=== PATIENT | female | born 1960 | race African-American/Black ===

== ENCOUNTER 2018-09-07 17:47 | Emergency (ER) | payer MEDICAID, OTHER ==
[~2018-09-07] VITALS: Ht 175.3 cm; Wt 78.0 kg
[~2018-09-07 17:47] MED LIST: IBUPROFEN600 MG PO; MOTION RELIEF25 MG PO; NKM; NORCO 5-325 TA1 EACH PO; PREVACID30 MG PO; ROBAXIN-750750 MG PO
[2018-09-07 17:56] VITALS: BP 138/85
--- NOTE | 2018-09-07 18:02 | NUR ---
ED Nurse Note: pt walked in to ED due to burning pain during urination. per pt, sx startes about 1 month ago with back pain. seen by PCP and took macrobid and cipro. but sx gets worse. starting 2 weeks, burning sensation started. AAO x4. respirations even and non-labored noted. skin warm to touch. no fever or chills reported. will wait for the further order.
--- NOTE | 2018-09-07 18:25 | Emergency Room Report ---
History of Present Illness General Chief Complaint: Female Urogenital Problems Source: Medical Record Present Illness HPI 58-year-old female presents to the emergency department complaining of 10 out of 10 in severity dysuria and lower abdominal burning sensation times one month. Patient reports that she has been evaluated twice and had normal UAs however she was placed on 2 different antibiotics first Macrobid for which made her symptoms worse, then she went to a different urgent care and received Cipro. Patient states that her symptoms less than however they returned. Patient denies hematuria. Patient reports acute onset of 10 out of 10 in severity right flank pain that she describes as intermittent and "stabbing " denies history of renal calculi, denies fevers, chills or recent trauma/fall. She denies vaginal discharge, genital lesions, swollen tender lymph nodes or history of STI. He denies history of diabetes Allergies: Coded Allergies: No Known Allergies (Unverified , 10/20/12) Patient History Past Medical History: see triage record Past Surgical History: none Pertinent Family History: none Last Menstrual Period: menopause Now: No Reviewed Nursing Documentation: PMH: Agreed; PSxH: Agreed Nursing Documentation-PMH Past Medical History: No History, Except For Hx Gastrointestinal Problems: Yes - gerd Review of Systems All Other Systems: negative except mentioned in HPI Physical Exam Vital Signs Date Time Temp Pulse Resp B/P (MAP) Pulse Ox O2 Delivery O2 Flow Rate FiO2 09/07/18 17:56 98.3 71 18 138/85 97 Room Air Sp02 EP Interpretation: reviewed, normal General Appearance: no apparent distress, alert, GCS 15, non-toxic Head: normocephalic, atraumatic Eyes: bilateral eye normal inspection, bilateral eye PERRL ENT: hearing grossly normal, normal voice Neck: full range of motion Respiratory: lungs clear, normal breath sounds, speaking full sentences Cardiovascular #1: regular rate, rhythm Gastrointestinal: normal bowel sounds, non tender, soft, non-distended, no guarding Rectal: deferred Genitourinary: normal inspection, no CVA tenderness Musculoskeletal: back normal, gait/station normal, normal range of motion, non- tender Neurologic: alert, oriented x3, responsive, motor strength/tone normal, sensory intact, speech normal, grossly normal Psychiatric: judgement/insight normal Skin: normal color, no rash, warm/dry, well hydrated Lymphatic: no adenopathy Medical Decision Making PA Attestation Dr. delcid is my supervising Physician whom patient management has been discussed with. Diagnostic Impression: Primary Impression: Cystitis Additional Impression: Dysuria ER Course 58-year-old female presents to the emergency department complaining of 10 out of 10 in severity dysuria and lower abdominal burning sensation times one month. Patient reports that she has been evaluated twice and had normal UAs however she was placed on 2 different antibiotics first Macrobid for which made her symptoms worse, then she went to a different urgent care and received Cipro. Patient states that her symptoms less than however they returned. Patient denies hematuria. Patient reports acute onset of 10 out of 10 in severity right flank pain that she describes as intermittent and "stabbing " denies history of renal calculi, denies fevers, chills or recent trauma/fall. She denies vaginal discharge, genital lesions, swollen tender lymph nodes or history of STI. He denies history of diabetes Ddx considered but are not limited to UTi , Pyelo, STI, Stone, Cystitis Vital signs: are WNL, pt. is afebrile H&PE are most consistent with possible chronic cystitis. ORDERS: - UA labs are attached- Unremarkable WNL -CT Abdomen/Pelvis without contrast: negative for calculi, noted bladder wall thickening. ED INTERVENTIONS: -Pyridium PO DISCHARGE: At this time pt. is stable for d/c to home. Will provide printed patient care instructions, and any necessary prescriptions. Care plan and follow up instructions have been discussed with the patient prior to discharge. Labs Test 09/07/18 18:00 Urine Color Pale yellow Urine Appearance Clear Urine pH 6.5 (4.5-8.0) Urine Specific [place] 1.010 (1.005-1.035) Urine Protein Negative (NEGATIVE) Urine Glucose (UA) Negative (NEGATIVE) Urine Ketones Negative (NEGATIVE) Urine Blood 1+ (NEGATIVE) Urine Nitrite Negative (NEGATIVE) Urine Bilirubin Negative (NEGATIVE) Urine Urobilinogen Normal MG/DL (0.0-1.0) Urine Leukocyte Esterase 1+ (NEGATIVE) Urine RBC 0-2 /HPF (0 - 2) Urine WBC 2-4 /HPF (0 - 2) Urine Squamous Epithelial Cells Few /LPF (NONE/OCC) Urine Bacteria Few /HPF (NONE) CT/MRI/US Diagnostic Results CT/MRI/US Diagnostic Results : Imaging Test Ordered: CT Abdomen and Pelvis W/O Contrast Impression "negative for calculi, noted bladder wall thickening"--Per official radiology report- Please see report for specific details. Last Vital Signs Date Time Temp Pulse Resp B/P (MAP) Pulse Ox O2 Delivery O2 Flow Rate FiO2 09/07/18 17:56 98.2 71 18 138/85 97 Room Air Disposition: HOME, SELF-CARE Condition: Stable Scripts Phenazopyridine Hcl* (PYRIDIUM*) 200 Mg Tablet 200 MG ORAL THREE TIMES A DAY for 5 Days, #15 TAB 0 Refills Prov: Jocelynn Rosales 09/07/18 Patient Instructions: Dysuria Additional Instructions: Take medications as directed. Pyridium will cause your urine to change color (Red/[place]), this is a normal side effect of the medication. Follow up with a Primary Care Provider in 3-5 days, For UROLOGY Referral --Please review list of primary care clinics, if you do not already have a primary care provider Return sooner to ED if new symptoms occur, or current symptoms become worse. - Please note that this Emergency Department Report was dictated using [employer] technology software, occasionally this can lead to erroneous entry secondary to interpretation by the dictation equipment. Jocelynn Rosales Sep 07, 2018 18:25
[2018-09-07 18:29] LABS: APPEARANCE,URINE CLEAR; BILIRUBIN, URINE NEGATIVE (NEGATIVE); COLOR,URINE PALE YELLOW; GLUCOSE, URINE (UA) NEGATIVE (NEGATIVE); KETONES,URINE NEGATIVE (NEGATIVE); LEUKOCYTE ESTERASE ,URINE 1+ (NEGATIVE); NITRITE,URINE NEGATIVE (NEGATIVE); PH,URINE 6.5 (4.5-8.0); PROTEIN,URINE NEGATIVE (NEGATIVE); UROBILINOGEN,URINE NORMAL MG/DL (0.0-1.0)
[2018-09-07] MEDS ORDERED: Phenazopyridine 200mg tab ORAL ONE (18:45)
[2018-09-07] MEDS ORDERED: PHENAZOPYRIDIN200 MG ORAL (20:25)
[2018-09-07 20:30] VITALS: BP 131/74
[2018-09-07 21:00] VITALS: BP 138/85
== END 2018-09-07 21:02 | disposition home or self-care (01) ==
LOC: EMR 18:25
DX: N30.90 Cystitis, unspecified without hematuria (principal); K21.9 Gastro-esophageal reflux disease without esophagitis
CPT/HCPCS: 74176; 81003; 99284

== ENCOUNTER 2019-01-02 16:39 | Emergency (ER) | payer OTHER ==
[~2019-01-02] VITALS: Ht 175.3 cm; Wt 80.3 kg
[~2019-01-02 16:39] MED LIST changes: +PHENAZOPYRIDIN200 MG ORAL
[2019-01-02] MEDS ORDERED: NAPROXEN375 M2 ORAL (16:48)
--- NOTE | 2019-01-02 17:32 | Emergency Room Report ---
History of Present Illness General Chief Complaint: Lower Extremity Injury Source: Patient Present Illness HPI 58-year-old female presents to the emergency department complaining of 6/10 x 3 weeks. hx of meniscal surgery years ago. no trauma or fall. hear pop when getting into her car. She reports weightbearing exacerbates her symptoms she states that her knee "gave out on her "she reports she is able to flex and extend she also reports that intermittently she'll have swelling behind the knee however she has been consistently having swelling anteriorly. She denies bruising, erythema, warmth, fevers, or chills. She has been taking Naproxen without relief. Allergies: Coded Allergies: No Known Allergies (Unverified , 10/20/12) Patient History Past Medical History: see triage record Past Surgical History: none Pertinent Family History: none Last Menstrual Period: na Now: No Reviewed Nursing Documentation: PMH: Agreed; PSxH: Agreed Nursing Documentation-PMH Past Medical History: No Stated History Hx Gastrointestinal Problems: Yes - gerd Review of Systems All Other Systems: negative except mentioned in HPI Physical Exam Vital Signs Date Time Temp Pulse Resp B/P (MAP) Pulse Ox O2 Delivery O2 Flow Rate FiO2 01/02/19 16:44 98.2 62 18 130/83 (99) 99 Room Air Sp02 EP Interpretation: reviewed, normal General Appearance: no apparent distress, alert, GCS 15, non-toxic Head: normocephalic, atraumatic Eyes: bilateral eye normal inspection, bilateral eye PERRL ENT: hearing grossly normal, normal voice Neck: full range of motion Respiratory: lungs clear, normal breath sounds, speaking full sentences Cardiovascular #1: regular rate, rhythm, normal capillary refill Cardiovascular #2: 2+ dorsalis pedis (R), 2+ dorsalis pedis (L) Musculoskeletal: back normal, gait/station normal, normal range of motion, tender - Swelling anteriorly, full range of motion with some pain, palpable effusion laterally, no significant increase in laxity. Neurologic: alert, oriented x3, responsive, motor strength/tone normal, sensory intact, speech normal, grossly normal Psychiatric: judgement/insight normal Skin: normal color, no rash, warm/dry, well hydrated Medical Decision Making PA Attestation Dr. delcid is my supervising Physician whom patient management has been discussed with. Diagnostic Impression: Primary Impression: Left knee sprain Qualified Codes: S83.92XA - Sprain of unspecified site of left knee, initial encounter Additional Impression: Soft tissue injury of left knee Qualified Codes: S89.92XA - Unspecified injury of left lower leg, initial encounter ER Course 58-year-old female presents to the emergency department complaining of 6/10 x 3 weeks. hx of meniscal surgery years ago. no trauma or fall. hear pop when getting into her car. She reports weightbearing exacerbates her symptoms she states that her knee "gave out on her "she reports she is able to flex and extend she also reports that intermittently she'll have swelling behind the knee however she has been consistently having swelling anteriorly. She denies bruising, erythema, warmth, fevers, or chills. She has been taking Naproxen without relief. Ddx considered but are not limited to Fracture, dislocation, contusion, septic joint, pseudo gout, gout, cellulitis, effusion , Sprain/Strain/Spasm, ligamental injury just to name a few. Vital signs: are WNL, pt. is afebrile H&PE are most consistent with knee strain/ overuse. ORDERS: X-ray Left knee complete 3 view - negative for fx, Dislocation, or significant soft tissue injury ED INTERVENTIONS: -Knee Immobilizer splint applied to the Left Knee by equipment service technician. Pt. remains neurovascularly intact. --Patient is provided with crutches and instructed on their use -I do not identify an emergent condition at this time. With current presentation , pt. is stable for close outpatient follow up and conservative treatment. D/ w pt. to return promptly to ED with worsening or new symptoms.- Pt. verbalizes' understanding and agreement with proposed treatment plan.proposed treatment plan. DISCHARGE: At this time pt. is stable for d/c to home. Will provide printed patient care instructions, and any necessary prescriptions. Care plan and follow up instructions have been discussed with the patient prior to discharge. Other X-Ray Diagnostic Results Other X-Ray Diagnostic Results : X-Ray ordered: LEft KNEE # of Views/Limited Vs Complete: 3 View Indication: Pain EP Interpretation: Yes PA Xray: Interpretation reviewed, by supervising MD, and agrees with findings. Interpretation: no dislocation, no soft tissue swelling, no fractures Impression: No acute disease Electronically Signed by: Jocelynn Rosales PA-C Last Vital Signs Date Time Temp Pulse Resp B/P (MAP) Pulse Ox O2 Delivery O2 Flow Rate FiO2 01/02/19 16:44 98.2 62 18 130/83 (99) 99 Room Air Status: improved Disposition: HOME, SELF-CARE Condition: Stable Scripts Diclofenac Sodium (VOLTAREN) 100 Gm Gel..gram. 1 APPLIC TP TID, #100 GM Prov: Jocelynn Rosales 01/02/19 Acetaminophen With Codeine (T#3) (TYLENOL #3 TAB*) Y Tab 1 TAB ORAL Q6H PRN for For Pain, #9 TAB Prov: Jocelynn Rosales 01/02/19 [facility],REFERRING (PCP) Patient Instructions: Knee Sprain Additional Instructions: Take medications as directed. Follow up with an OUTSIDE CUTTER in 3-5 days, even if your symptoms have resolved. If symptoms persist MRI may be required at the discretion of your Ortho Specialist. --Please review list of primary care clinics, if you do not already have a primary care provider who can give you an Orthopedic Referral. Return sooner to ED if new symptoms occur, or current symptoms become worse. Do not drink alcohol, drive, or operate heavy machinery while taking Tylenol # 3 as this may cause drowsiness. - Please note that this Emergency Department Report was dictated using [employer] technology software, occasionally this can lead to erroneous entry secondary to interpretation by the dictation equipment. Jocelynn Rosales January 02, 2019 17:32
[2019-01-02] MEDS ORDERED: VOLTAREN100 G1 TP (17:36)
[2019-01-02] MEDS ORDERED: ACETAMINOPHEN-1 EAC1 ORAL (17:36)
--- NOTE | 2019-01-02 17:50 | NUR ---
ER DISCHARGE NOTE:knee immobilizer placed on right knee and cratchies provided Patient is cleared to be discharged per ERPA, pt is aox4, on room air, with stable vital signs. pt was given dc and prescription instructions, pt was able to verbalize understanding, pt is able to ambulate with steady gait. pt took all belongings.
[2019-01-02 18:13] VITALS: BP 130/83
--- NOTE | 2019-01-03 11:01 | Diagnostic Imaging Report ---
Indication: Left knee pain Technique: 3 views of the left knee Comparison: None Findings: No acute fractures. No dislocations. The joint spaces are preserved. Surgical clips are seen in the posterior soft tissues. Impression: No acute process
== END 2019-01-02 18:00 | disposition home or self-care (01) ==
LOC: EMR 16:59
DX: S83.92XA Sprain of unspecified site of left knee, initial encounter (principal); S89.92XA Unspecified injury of left lower leg, initial encounter; X58.XXXA Exposure to other specified factors, initial encounter; Y92.9 Unspecified place or not applicable; K21.9 Gastro-esophageal reflux disease without esophagitis
CPT/HCPCS: 29505; 99283